=== PATIENT | female | born 1975 | race Caucasian/White ===

== ENCOUNTER 2022-12-24 10:15 | Emergency (ER) | payer MEDICAID ==
[~2022-12-24] VITALS: Ht 160 cm; Wt 91.0 kg
[2022-12-24 10:25] VITALS: O2SAT 98
[2022-12-24] MEDS ORDERED: albuterol (10:25)
[2022-12-24] MEDS ORDERED: KETOROLAC 60MG/2ML VIAL IM NR (12:15)
[2022-12-24] MEDS ORDERED: NAP5EC MT (12:45)
[2022-12-24 13:12] VITALS: BP 121/78; PULSE 77; RESP 18; TEMP 97.7
== END 2022-12-24 13:13 | disposition home or self-care (01) ==
LOC: ER 10:15
DX: S39.012A Strain of muscle, fascia and tendon of lower back, initial encounter (principal); S63.501A Unspecified sprain of right wrist, initial encounter; J45.909 Unspecified asthma, uncomplicated; W18.30XA Fall on same level, unspecified, initial encounter; Y93.89 Activity, other specified; Y92.89 Other specified places as the place of occurrence of the external cause; Y99.8 Other external cause status
CPT/HCPCS: 99285; 70450; 72100; 73110; 96372; J1885